=== PATIENT | female | born 1955 | race Caucasian/White ===

== ENCOUNTER 2022-08-01 15:40 | Emergency (ER) | payer MEDICARE, SELFPAY ==
[2022-08-01 15:58] VITALS: BP 157/83; PULSE 70; RESP 18; TEMP 36.6; O2SAT 99
--- NOTE | 2022-08-01 16:04 | DI.RAD.S_ITS ---
PROCEDURE: XR CHEST 1V INDICATIONS: chest pain TECHNIQUE: One view of the chest was acquired. COMPARISON: None. FINDINGS: Surgical changes and devices: None. Lungs and pleura: Lungs are clear. No pleural effusions or pneumothorax. Mediastinum: Mediastinal contours appear normal. Heart size is normal. Bones and chest wall: No suspicious bony lesions. Overlying soft tissues appear unremarkable. IMPRESSION: No acute cardiopulmonary pathology. Dictated by: Isaiah Schneider M.D. on 08/01/2022 at 16:37 Approved by: Isaiah Schneider M.D. on 08/01/2022 at 16:38
[2022-08-01 17:05] LABS: Add Manual Diff / Slide Review NO; Basophils Absolute Auto 100 /uL (0-100); Basophils Percent Auto 0.9 % (0-2); Eosinophils Absolute Auto 200 /uL (0-450); Eosinophils Percent Auto 2.5 % (2-4); Hematocrit 44.4 % (36-46); Hemoglobin 14.8 g/dL (12.0-16.0); Lymphocytes Absolute Auto 3000 /uL (1100-4500); Lymphocytes Percent Auto 32.1 % (25-40); Mean Corpuscular HGB Conc 33.3 % (30-36); Mean Corpuscular Hemoglobin 30.5 PG (26-34); Mean Corpuscular Volume 91.6 fL (80-100); Monocytes Absolute Auto 700 /uL (0-900); Monocytes Percent Auto 7.8 % (3-14); Neutrophils Absolute Auto 5300 /uL (1500-7000); Neutrophils Percent Auto 56.7 % (50-75); Platelet Count 297 X10^3/uL (150-400); Red Blood Cell Count 4.84 X10^6/uL (4.0-5.2); Red Cell Distribution Width 13.8 % (11.6-14.8); White Blood Cell Count 9.4 X10^3/uL (4.5-11.0)
[2022-08-01 17:06] LABS: INR 0.9 (0.9-1.3); Prothrombin Time 10.7 SECONDS (10.1-12.7)
[2022-08-01 17:09] LABS: PTT Partial Thromboplastin Tim 35 SECONDS (26-36)
[2022-08-01 17:12] LABS: Alanine Aminotransferase 35 IU/L (<35); Albumin Globulin Ratio 1.1 (1.0-2.8); Alkaline Phosphatase 94 U/L (38-126); Aspartate Aminotransferase 34 IU/L (14-36); BUN Creatinine Ratio 10.9 (6-22); Bilirubin Total 0.4 mg/dL (0.2-1.3); Blood Urea Nitrogen 12 mg/dL (7-17); Calcium 9.2 mg/dL (8.4-10.2); Carbon Dioxide 21 mmol/L (22-32); Chloride 107 mmol/L (98-107); Creatine Kinase 104 U/L (30-135); Estimated Glomerular Filt Rate 56 mL/min (>60); Globulin 3.6 g/dL (1.7-4.1); Glucose 85 mg/dL (80-110); HEMOLYSIS < 15 (0-50); Lipase 303 U/L (23-300); Magnesium 2.2 mg/dL (1.6-2.3); Potassium 3.9 mmol/L (3.4-5.1); Sodium 139 mmol/L (137-145); Total Protein 7.6 g/dL (6.3-8.2)
[2022-08-01 17:23] LABS: Troponin I < 0.012 ng/mL (0.01-0.034)
[2022-08-01 17:27] LABS: CKMB % Relative Index 1.6 % (1.5-5.0); Creatine Kinase MB 1.68 ng/mL (<2.37)
--- NOTE | 2022-08-01 19:21 | ED.CHESTPAIN ---
HPI - Chest Pain <Marla Kidd PA-C - Last Filed: 08/01/22 20:07> General Chief Complaint: Chest Pain Stated Complaint: Chest pain Time Seen by Provider: 08/01/22 17:18 Source: patient Mode of arrival: Ambulatory Limitations: no limitations History of Present Illness HPI narrative: 67-year-old female with past medical history hypercholesterolemia presents to the ED with 3 days of substernal chest pain. Patient states that she started Lipitor 1 month ago, she started experiencing chest pain 3 days ago. Patient states that she took a statin in the past with similar side effects. Patient believes that her chest pain is likely related to the Lipitor. Patient endorses substernal chest pain that she describes as chest tightness, no exacerbating or alleviating factors. Patient denies fevers, chills, shortness of breath, nausea, vomiting, abdominal pain, lightheadedness, dizziness, syncope. Patient states that she sometimes feels fleeting numbness in the left arm. Related Data Allergies Allergy/AdvReac Type Severity Reaction Status Date / Time Sulfa (Sulfonamide Allergy Verified 08/01/22 16:03 Antibiotics) Review of Systems <Marla Kidd PA-C - Last Filed: 08/01/22 20:07> Review of Systems ROS Unobtainable: All systems reviewed & are unremarkable except as noted in HPI and below Constitutional Constitutional: Denies chills, Denies fatigue, Denies fever(s), Denies frequent falls, Denies lethargy and Denies weakness Eyes Eyes: Denies change in vision, Denies eye discharge, Denies irritation and Denies loss of vision ENT Ears, Nose, Mouth, and Throat: Denies change in voice, Denies dizziness, Denies neck pain, Denies sore throat and Denies throat swelling Cardiovascular Cardiovascular: Reports chest pain, Denies irregular heart rhythm, Denies lightheadedness, Denies palpitations, Denies dyspnea, Denies dyspnea on exertion and Denies orthopnea Respiratory Respiratory: Denies cough, Denies dyspnea, Denies dyspnea on exertion and Denies wheezing Gastrointestinal Gastrointestinal: Denies abdominal pain, Denies change in bowel habits, Denies diarrhea, Denies nausea and Denies vomiting Genitourinary Genitourinary: Denies hematuria, Denies flank pain, Denies urinary incontinence and Denies urinary urgency Musculoskeletal Musculoskeletal: Denies back pain, Denies muscle weakness, Denies neck pain, Denies numbness and Denies tingling Integumentary/Breasts Skin/Breast: Denies pruritus, Denies erythema, Denies rash and Denies wounds Neurologic Neurologic: Denies behavioral changes, Denies confusion, Denies dizziness, Denies frequent falls, Denies loss of vision, Denies numbness, Denies tingling and Denies weakness Psychiatric Psychiatric: Denies anxiety, Denies behavioral changes, Denies confusion, Denies depression, Denies homicidal ideation and Denies suicidal ideation Endocrine Endocrine: Denies fatigue, Denies flushing and Denies palpitations Hematologic/Lymphatic Hematologic/Lymphatic: Denies easy bruising Allergic/Immunologic Allergic/Immunologic: Denies urticaria, Denies throat swelling and Denies wheezing Patient History <Marla Kidd PA-C - Last Filed: 08/01/22 20:07> Social History Smoking Status: Former smoker Smoking Status: Former smoker alcohol intake frequency: holidays/special occasions only Substance Use Type: does not use Exam <Marla Kidd PA-C - Last Filed: 08/01/22 20:07> Narrative Exam Narrative: Const General:?cooperative, healthy appearing and comfortable [facility] Head:?normal to inspection Ears:?hearing grossly normal bilaterally Nose:?external nose normal Face and sinus:?normal facial exam and sinuses nontender Mouth:?oral mucosae normal Throat:?posterior oropharynx normal Eyes General:?appearance normal, both eyes and all related structures Neck Neck:?normal visual inspection and no lymphadenopathy noted Resp Effort & Inspection:?normal respiratory effort Auscultation:?clear to auscultation bilaterally Cardio Rate:?regular rate Rhythm:?regular rhythm Neuro General:?patient alert, patient awake and patient oriented x3 Initial Vital Signs Initial Vital Signs: Vital Signs Temperature 97.9 F 08/01/22 15:58 Pulse Rate 70 08/01/22 15:58 Respiratory Rate 18 08/01/22 15:58 Blood Pressure 157/83 H 08/01/22 15:58 Pulse Oximetry 99 08/01/22 15:58 Oxygen Delivery Method 08/01/22 15:58 <Kemal Newberry MD - Last Filed: 08/07/22 10:04> Initial Vital Signs Initial Vital Signs: Vital Signs Temperature 97.9 F 08/01/22 15:58 Pulse Rate 70 08/01/22 15:58 Respiratory Rate 18 08/01/22 15:58 Blood Pressure 157/83 H 08/01/22 15:58 Pulse Oximetry 99 08/01/22 15:58 Oxygen Delivery Method 08/01/22 15:58 Course <Marla Kidd PA-C - Last Filed: 08/01/22 20:07> Orders Ordered: Discontinued Medications Aspirin (Aspirin 81 Mg Chew Tab) 324 mg PO NOW ONE Stop: 08/01/22 16:04 Last Admin: 08/01/22 16:06 Dose: Not Given Documented By: BT Al Hydrox/Mg Hydrox/Simethicone 20 ml/ Lidocaine HCl 15 ml 0 ml PO NOW ONE Stop: 08/01/22 19:20 Last Admin: 08/01/22 19:32 Dose: 35 ml Documented By: BT Famotidine (Famotidine 20 Mg Tablet) 20 mg PO BID ANGELA Famotidine (Famotidine 20 Mg Tablet) 20 mg PO NOW ONE Stop: 08/01/22 19:30 Last Admin: 08/01/22 19:32 Dose: 20 mg Documented By: BT Vital Signs Vital signs: Vital Signs - 8 hr 08/01/22 15:58 08/01/22 19:41 Temperature 97.9 F Pulse Rate 70 64 Respiratory Rate 18 16 Blood Pressure 157/83 H 137/81 Pulse Oximetry 99 98 Oxygen Delivery Method Room Air Room Air <Kemal Newberry MD - Last Filed: 08/07/22 10:04> Orders Ordered: Discontinued Medications Aspirin (Aspirin 81 Mg Chew Tab) 324 mg PO NOW ONE Stop: 08/01/22 16:04 Last Admin: 08/01/22 16:06 Dose: Not Given Documented By: BT Al Hydrox/Mg Hydrox/Simethicone 20 ml/ Lidocaine HCl 15 ml 0 ml PO NOW ONE Stop: 08/01/22 19:20 Last Admin: 08/01/22 19:32 Dose: 35 ml Documented By: BT Famotidine (Famotidine 20 Mg Tablet) 20 mg PO BID ANGELA Famotidine (Famotidine 20 Mg Tablet) 20 mg PO NOW ONE Stop: 08/01/22 19:30 Last Admin: 08/01/22 19:32 Dose: 20 mg Documented By: BT Vital Signs Vital signs: Vital Signs - 8 hr 08/01/22 15:58 08/01/22 19:41 Temperature 97.9 F Pulse Rate 70 64 Respiratory Rate 18 16 Blood Pressure 157/83 H 137/81 Pulse Oximetry 99 98 Oxygen Delivery Method Room Air Room Air MDM - Chest Pain <Marla Kidd PA-C - Last Filed: 08/01/22 20:07> Lab Data Result diagrams: 08/01/22 16:45 08/01/22 16:45 Labs: Lab Results 08/01/22 08/01/22 08/01/22 Range/Units 16:45 16:45 16:45 WBC 9.4 (4.5-11.0) X10^3/uL RBC 4.84 (4.0-5.2) X10^6/uL Hgb 14.8 (12.0-16.0) g/dL Hct 44.4 (36-46) % MCV 91.6 (80-100) fL MCH 30.5 (26-34) PG MCHC 33.3 (30-36) % RDW 13.8 (11.6-14.8) % Plt Count 297 (150-400) X10^3/uL Neut % (Auto) 56.7 (50-75) % Lymph % (Auto) 32.1 (25-40) % [place] % (Auto) 7.8 (3-14) % Eos % (Auto) 2.5 (2-4) % Baso % (Auto) 0.9 (0-2) % Neut # (Auto) 5300 (4052-5026) /uL Lymph # (Auto) 3000 (6927-5616) /uL [place] # (Auto) 700 (0-900) /uL Eos # (Auto) 200 (0-450) /uL Baso # (Auto) 100 (0-100) /uL PT 10.7 (10.1-12.7) SECONDS INR 0.9 (0.9-1.3) APTT 35 (26-36) SECONDS Sodium 139 (137-145) mmol/L Potassium 3.9 (3.4-5.1) mmol/L Chloride 107 (98-107) mmol/L Carbon Dioxide 21 L (22-32) mmol/L BUN 12 (7-17) mg/dL Creatinine 1.10 H (0.52-1.04) mg/dL Estimated GFR 56 L (>60) mL/min BUN/Creatinine Ratio 10.9 (6-22) Glucose 85 (80-110) mg/dL Calcium 9.2 (8.4-10.2) mg/dL Magnesium 2.2 (1.6-2.3) mg/dL Total Bilirubin 0.4 (0.2-1.3) mg/dL AST 34 (14-36) IU/L ALT 35 H (<35) IU/L Alkaline Phosphatase 94 (38-126) U/L Total Creatine Kinase 104 (30-135) U/L CK-MB (CK-2) 1.68 (<2.37) ng/mL CK-MB (CK-2) Rel Index 1.6 (1.5-5.0) % Troponin I < 0.012 (0.01-0.034) ng/mL Total Protein 7.6 (6.3-8.2) g/dL Albumin 4.0 (3.5-5.0) g/dL Globulin 3.6 (1.7-4.1) g/dL Albumin/Globulin Ratio 1.1 (1.0-2.8) Lipase 303 H (23-300) U/L 08/01/22 Range/Units 19:20 WBC (4.5-11.0) X10^3/uL RBC (4.0-5.2) X10^6/uL Hgb (12.0-16.0) g/dL Hct (36-46) % MCV (80-100) fL MCH (26-34) PG MCHC (30-36) % RDW (11.6-14.8) % Plt Count (150-400) X10^3/uL Neut % (Auto) (50-75) % Lymph % (Auto) (25-40) % Carl[place] % (Auto) (3-14) % Eos % (Auto) (2-4) % Baso % (Auto) (0-2) % Neut # (Auto) (8282-7626) /uL Lymph # (Auto) (3965-8806) /uL [place] # (Auto) (0-900) /uL Eos # (Auto) (0-450) /uL Baso # (Auto) (0-100) /uL PT (10.1-12.7) SECONDS INR (0.9-1.3) APTT (26-36) SECONDS Sodium (137-145) mmol/L Potassium (3.4-5.1) mmol/L Chloride (98-107) mmol/L Carbon Dioxide (22-32) mmol/L BUN (7-17) mg/dL Creatinine (0.52-1.04) mg/dL Estimated GFR (>60) mL/min BUN/Creatinine Ratio (6-22) Glucose (80-110) mg/dL Calcium (8.4-10.2) mg/dL Magnesium (1.6-2.3) mg/dL Total Bilirubin (0.2-1.3) mg/dL AST (14-36) IU/L ALT (<35) IU/L Alkaline Phosphatase (38-126) U/L Total Creatine Kinase 108 (30-135) U/L CK-MB (CK-2) 1.78 (<2.37) ng/mL CK-MB (CK-2) Rel Index 1.6 (1.5-5.0) % Troponin I < 0.012 (0.01-0.034) ng/mL Total Protein (6.3-8.2) g/dL Albumin (3.5-5.0) g/dL Globulin (1.7-4.1) g/dL Albumin/Globulin Ratio (1.0-2.8) Lipase (23-300) U/L Imaging Data Chest x-ray: Radiologist's Impression: PROCEDURE:? XR CHEST 1V ? INDICATIONS:? chest pain ? TECHNIQUE:? One view of the chest was acquired.? ? COMPARISON:? None. ? FINDINGS:? ? Surgical changes and devices:? None.? ? Lungs and pleura:? Lungs are clear.? No pleural effusions or pneumothorax.? ? Mediastinum:? Mediastinal contours appear normal.? Heart size is normal.? ? Bones and chest wall:? No suspicious bony lesions.? Overlying soft tissues appear unremarkable.? ? IMPRESSION:? No acute cardiopulmonary pathology. ? ? Dictated by: Isaiah Schneider M.D. on 08/01/2022 at 16:37 ? ? Approved by: Isaiah Schneider M.D. on 08/01/2022 at 16:38 ? MDM Narrative Medical decision making narrative: 67-year-old female with past medical history hypercholesterolemia presents to the ED with 3 days of substernal chest pain. Concern for ACS versus pneumonia versus GERD versus other. Will obtain labs, chest x-ray, EKG, troponin. Will trial Pepcid AC, GI cocktail. Will reassess. Workup unremarkable. Will repeat troponin. Repeat troponin was negative. Discharge patient home with ED return precautions. She verbalized understanding. <Kemal Newberry MD - Last Filed: 08/07/22 10:04> Lab Data Labs: Lab Results 08/01/22 08/01/22 08/01/22 Range/Units 16:45 16:45 16:45 WBC 9.4 (4.5-11.0) X10^3/uL RBC 4.84 (4.0-5.2) X10^6/uL Hgb 14.8 (12.0-16.0) g/dL Hct 44.4 (36-46) % MCV 91.6 (80-100) fL MCH 30.5 (26-34) PG MCHC 33.3 (30-36) % RDW 13.8 (11.6-14.8) % Plt Count 297 (150-400) X10^3/uL Neut % (Auto) 56.7 (50-75) % Lymph % (Auto) 32.1 (25-40) % Carl[place] % (Auto) 7.8 (3-14) % Eos % (Auto) 2.5 (2-4) % Baso % (Auto) 0.9 (0-2) % Neut # (Auto) 5300 (1368-3028) /uL Lymph # (Auto) 3000 (8514-1664) /uL [place] # (Auto) 700 (0-900) /uL Eos # (Auto) 200 (0-450) /uL Baso # (Auto) 100 (0-100) /uL PT 10.7 (10.1-12.7) SECONDS INR 0.9 (0.9-1.3) APTT 35 (26-36) SECONDS Sodium 139 (137-145) mmol/L Potassium 3.9 (3.4-5.1) mmol/L Chloride 107 (98-107) mmol/L Carbon Dioxide 21 L (22-32) mmol/L BUN 12 (7-17) mg/dL Creatinine 1.10 H (0.52-1.04) mg/dL Estimated GFR 56 L (>60) mL/min BUN/Creatinine Ratio 10.9 (6-22) Glucose 85 (80-110) mg/dL Calcium 9.2 (8.4-10.2) mg/dL Magnesium 2.2 (1.6-2.3) mg/dL Total Bilirubin 0.4 (0.2-1.3) mg/dL AST 34 (14-36) IU/L ALT 35 H (<35) IU/L Alkaline Phosphatase 94 (38-126) U/L Total Creatine Kinase 104 (30-135) U/L CK-MB (CK-2) 1.68 (<2.37) ng/mL CK-MB (CK-2) Rel Index 1.6 (1.5-5.0) % Troponin I < 0.012 (0.01-0.034) ng/mL Total Protein 7.6 (6.3-8.2) g/dL Albumin 4.0 (3.5-5.0) g/dL Globulin 3.6 (1.7-4.1) g/dL Albumin/Globulin Ratio 1.1 (1.0-2.8) Lipase 303 H (23-300) U/L 08/01/22 Range/Units 19:20 WBC (4.5-11.0) X10^3/uL RBC (4.0-5.2) X10^6/uL Hgb (12.0-16.0) g/dL Hct (36-46) % MCV (80-100) fL MCH (26-34) PG MCHC (30-36) % RDW (11.6-14.8) % Plt Count (150-400) X10^3/uL Neut % (Auto) (50-75) % Lymph % (Auto) (25-40) % Carl[place] % (Auto) (3-14) % Eos % (Auto) (2-4) % Baso % (Auto) (0-2) % Neut # (Auto) (6537-9465) /uL Lymph # (Auto) (8559-9527) /uL [place] # (Auto) (0-900) /uL Eos # (Auto) (0-450) /uL Baso # (Auto) (0-100) /uL PT (10.1-12.7) SECONDS INR (0.9-1.3) APTT (26-36) SECONDS Sodium (137-145) mmol/L Potassium (3.4-5.1) mmol/L Chloride (98-107) mmol/L Carbon Dioxide (22-32) mmol/L BUN (7-17) mg/dL Creatinine (0.52-1.04) mg/dL Estimated GFR (>60) mL/min BUN/Creatinine Ratio (6-22) Glucose (80-110) mg/dL Calcium (8.4-10.2) mg/dL Magnesium (1.6-2.3) mg/dL Total Bilirubin (0.2-1.3) mg/dL AST (14-36) IU/L ALT (<35) IU/L Alkaline Phosphatase (38-126) U/L Total Creatine Kinase 108 (30-135) U/L CK-MB (CK-2) 1.78 (<2.37) ng/mL CK-MB (CK-2) Rel Index 1.6 (1.5-5.0) % Troponin I < 0.012 (0.01-0.034) ng/mL Total Protein (6.3-8.2) g/dL Albumin (3.5-5.0) g/dL Globulin (1.7-4.1) g/dL Albumin/Globulin Ratio (1.0-2.8) Lipase (23-300) U/L Discharge Plan Departure Patient Disposition: Home Clinical Impression: Chest pain Instructions: DI for Chest Pain Activity Restrictions/Additional Instructions: You were evaluated in the ED today for chest pain. Your chest x-ray, EKG, labs were normal. You were given a trial of antacids in case your pain was caused by acid reflux. You may continue to take Pepcid AC twice a day at home for the next 2 weeks. Please follow-up with your PCP in order to re-evaluate the Lipitor. Please return to the ED if you experience worsening chest pain, shortness of breath. Referrals: Gloria Collado PA-C [Primary Care Provider] - Visit Report Forms: Patient Portal/API <Kemal Newberry MD - Last Filed: 08/07/22 10:04> Cosign ED Attending Cosignature Attestation: I was immediately available in the department for consultation. ?This documentation has been reviewed and I agree with assessment and plan. Supervised by Kemal Newberry MD
[2022-08-01] MEDS: FAMOTIDINE 20 MG TABLET PO (19:32)
[2022-08-01] MEDS: MAG HYDROX/ALUMINUM/SIMETH SUS 20 ML, LIDOCAINE VISCOUS 2% 15 ML PO (19:32)
[2022-08-01 19:41] VITALS: BP 137/81; PULSE 64; RESP 16; O2SAT 98
[2022-08-01 19:47] LABS: Creatine Kinase 108 U/L (30-135)
[2022-08-01 20:00] LABS: Troponin I < 0.012 ng/mL (0.01-0.034)
[2022-08-01 20:03] LABS: CKMB % Relative Index 1.6 % (1.5-5.0); Creatine Kinase MB 1.78 ng/mL (<2.37)
== END 2022-08-01 20:00 | disposition home or self-care (01) ==
PROVIDERS: Emergency Medicine; Emergency Provider Student in an Organized Health Care Education/Training Program; PCP Physician Assistant
DX: R07.9 Chest pain, unspecified (principal)
CPT/HCPCS: 36415; 71045; 80053; 82550; 82553; 83690; 83735; 84484; 85025; 85610; 85730; 93005; 99284; A9270

== ENCOUNTER → 2022-09-16 11:21 | Outpatient (CLI) | payer MEDICARE, SELFPAY ==
--- NOTE | 2022-09-16 | DI.NM.S_ITS ---
PROCEDURE: NM KASIA PERF SPECT R&S PHARM Rest and pharmacological stress myocardial perfusion SPECT with gated imaging and ejection fraction RADIOPHARMACEUTICAL: 26.2 mCi Tc-99m tetrafosmin IV at rest and 26.1 mCi Tc-99m tetrafosmin IV at peak effect of pharmacological stress. [id number] was performed. INDICATIONS: Chest pain TECHNIQUE: Radiopharmaceutical was injected at peak stress test, and also at rest. SPECT images were obtained. SPECT myocardial perfusion images were displayed in short axis, horizontal long axis, and vertical long axis views. Gated images were reviewed using 9You software. COMPARISON: None. CARDIAC STRESS: A pharmacologic stress test was performed under the supervision of an attending staff, using an infusion of lexiscan 0.4mg IV X1. Hemodynamic data: There is normal blood pressure and heart rate response to pharmacologic stress. Symptoms: The patient denied anginal chest pain. Aminophylline: none EKG: No diagnostic changes of ischemia; no ectopy. FINDINGS: Raw data: There is good myocardial uptake of radiotracer. No significant motion artifacts. [id number] ratio is 0.3 (normal is less than 0.38 for tetrafosmin tracer). Left ventricle function: Gated images demonstrate normal left ventricular wall thickening. No segmental wall motion abnormalities. No transient ischemic dilation; TID is 0.89 (normal less than 1.3). Left ventricle resting end diastolic volume is 69 mL. Left ventricle stress ejection fraction is 81%; normal range is above 45%. Myocardial perfusion: Fixed apical defect that resolves with prone imaging, suggest apical thinning artifact. No ischemia and no infarction. IMPRESSION: Low risk, normal pharmaceutical nuclear stress test 1) Fixed apical defect that resolves with prone imaging, suggest apical thinning artifact. No ischemia and no infarction. 2) Normal left ventricular size, wall motion, and systolic function (EF post stress 81%). 3) No diagnostic ST changes with lexsican. 4) No angina during the study. 5) No prior nuclear stress test available for comparison. Dictated by: Zulema Serrano MD on 09/18/2022 at 14:36 Approved by: Zulema Serrano MD on 09/18/2022 at 14:38
[2022-09-16 14:04] LABS: COVID19 -Nasal RAPID Negative (Negative)
== END ==
PROVIDERS: PCP Physician Assistant Medical; Referring Provider Physician Assistant Medical; Visit Provider Physician Assistant Medical
DX: R07.9 Chest pain, unspecified (principal); Z20.822 Contact with and (suspected) exposure to COVID-19
CPT/HCPCS: 78452; 87635; 93017; A9502; J2785